=== PATIENT | female | born 1965 | race Caucasian/White ===

== ENCOUNTER 2017-04-15 01:53 | Observation (INO) | payer BC ==
[2017-04-15] MEDS ORDERED: MORPHINE SULFATE 10 MG/ML INJ IV ONE ×2 (03:21→06:28)
[2017-04-15] MEDS ORDERED: ONDANSETRON HCL INJ/PF 4 MG/2 ML SDV IV ONE (03:22)
[2017-04-15] MEDS ORDERED: NORMAL SALINE 1000 ML 1,000 ML IV ONE (03:22)
[2017-04-15] MEDS ORDERED: KETOROLAC TROMETHAMINE INJ/PF 30 MG/1 ML SDV IV ONE (03:22)
--- NOTE | 2017-04-15 03:24 | ER Document Report ---
ED GI/ - General Chief Complaint: Abdominal Pain Stated Complaint: ABDOMINAL PAIN Time Seen by Provider: 04/15/17 03:14 Notes: Patient is a 52-year-old female that comes emergency department for chief complaint of pain in her upper abdomen and vomiting. She states that she started having pain at about 2200, shortly after she had eaten a steak dinner. She states that she vomited about 10 times. She denies any suspicious foods, recent travel, fever or chills. She denies any alcohol, only past medical history reported is hypertension and C-sections. TRAVEL OUTSIDE OF THE [place] IN LAST 30 DAYS: No - Related Data Allergies/Adverse Reactions: No Known Allergies Allergy (Unverified 04/15/17 03:38) Past Medical History - General Information source: Patient - Social History Smoking Status: Never Smoker Frequency of alcohol use: Occasional Drug Abuse: None Lives with: Family Family History: Reviewed & Not Pertinent - Past Medical History Cardiac Medical History: Reports: Hx Hypertension Past Surgical History: Reports: Hx Section - Immunizations Immunizations up to date: Yes Hx Diphtheria, Pertussis, Tetanus Vaccination: Yes Review of Systems - Review of Systems Constitutional: No symptoms reported EENT: No symptoms reported Cardiovascular: No symptoms reported Respiratory: No symptoms reported Gastrointestinal: See HPI Genitourinary: No symptoms reported Female Genitourinary: No symptoms reported Musculoskeletal: No symptoms reported Skin: No symptoms reported Hematologic/Lymphatic: No symptoms reported Neurological/Psychological: No symptoms reported Physical Exam - Vital signs Vitals: Temp Pulse Resp BP Pulse Ox 98.0 F 75 18 105/80 97 04/15/17 02:23 04/15/17 02:23 04/15/17 02:23 04/15/17 02:23 04/15/17 02:23 Interpretation: Normal - General General appearance: Alert In distress: None - HEENT Head: Normocephalic, Atraumatic Eyes: Normal Conjunctiva: Normal Extraocular movements intact: Yes Eyelashes: Normal Pupils: PERRL Nasal: Normal Mouth/Lips: Normal Mucous membranes: Normal Pharynx: Normal Neck: Normal - Respiratory Respiratory status: No respiratory distress Chest status: Nontender Breath sounds: Normal. No: Decreased air movement, Wheezing Chest palpation: Normal - Cardiovascular Rhythm: Regular. No: Tachycardia Heart sounds: Normal auscultation, S1 appreciated, S2 appreciated Murmur: No - Abdominal Inspection: Normal Distension: No distension Bowel sounds: Normal Tenderness: Tender - Tender in the epigastric and right upper quadrant areas, lower abdomen is unremarkable, no rigidity or rebound tenderness, Khan's sign - Back Back: Normal, Nontender - Extremities General upper extremity: Normal inspection, Nontender, Normal color, Normal ROM , Normal temperature General lower extremity: Normal inspection, Nontender, Normal color, Normal ROM , Normal temperature, Normal weight bearing. No: Nahed's sign - Neurological Neuro grossly intact: Yes Cognition: Normal Orientation: AAOx4 [place] Coma Scale Eye Opening: Spontaneous Junior Coma Scale Verbal: Oriented [place] Coma Scale Motor: Obeys Commands [place] Coma Scale Total: 15 Speech: Normal Motor strength normal: LUE, RUE, LLE, RLE Sensory: Normal - Psychological Associated symptoms: Normal affect, Normal mood - Skin Skin Temperature: Warm Skin Moisture: Dry Skin Color: Normal Course - Re-evaluation Re-evalutation: Patient with epigastric and right upper quadrant tenderness along with pain and vomiting suggesting gallbladder pathology. Remaining examination is unremarkable. Patient much more comfortable after medications. CBC shows mild leukocytosis with elevation of neutrophils but no bandemia. Chemistry unremarkable, lipase normal. Ultrasound showing cholelithiasis along with unmoving stone in the gallbladder neck. Borderline gallbladder wall thickness. No pericholecystic fluid. No obstructive pathology in the ducts. On reexamination patient is beginning to have pain again. Because of difficulty managing pain, location of stone, I suspect patient will not perform well outpatient. Discussed surgery with her, she is agreeable with this. Patient will be kept n.p.o., medicated. Discussed with Dr. Vogt, surgery on-call, he will evaluate the patient. - Vital Signs Vital signs: Temp Pulse Resp BP Pulse Ox 98.0 F 75 18 105/80 97 04/15/17 02:23 04/15/17 02:23 04/15/17 02:23 04/15/17 02:23 04/15/17 02:23 - Laboratory Result Diagrams: 04/15/17 03:35 04/15/17 03:35 Laboratory results interpreted by me: 04/15/17 04/15/17 03:35 03:35 WBC 13.6 H Hgb 11.0 L Hct 33.4 L MCV 70 L MCH 23.3 L RDW 16.4 H Seg Neutrophils % 82.9 H Absolute Neutrophils 11.3 H Sodium 136.3 L Potassium 3.2 L Glucose 129 H Discharge - Discharge Clinical Impression: Epigastric pain Cholelithiasis Qualifiers: Cholelithiasis location: gallbladder and bile duct Cholecystitis presence: without cholecystitis Biliary obstruction: without biliary obstruction Qualified Code(s): K80.70 - Calculus of gallbladder and bile duct without cholecystitis without obstruction Vomiting Qualifiers: Vomiting type: unspecified Vomiting Intractability: non-intractable Nausea presence: with nausea Qualified Code(s): R11.2 - Nausea with vomiting, unspecified Condition: Stable Disposition: ADMITTED OBSERVATION Admitting Provider: Surgicalist Unit Admitted: Surgical Floor Referrals: SJ CASTRO MD [Primary Care Provider] - Follow up as needed
[2017-04-15 03:44] LABS: ABSOLUTE BASOPHILS # (AUTO) 0.1 10^3/uL (0.0-0.2); ABSOLUTE LYMPHOCYTES (AUTO) 1.8 10^3/uL (0.5-4.7); ABSOLUTE MONOCYTES (AUTO) 0.5 10^3/uL (0.1-1.4); ABSOLUTE NEUT (AUTO) 11.3 10^3/uL (1.7-8.2); BASOPHILS % (AUTO) 0.5 % (0-2); EOSINOPHILS % (AUTO) 0.3 % (0-6); HEMATOCRIT 33.4 % (36.0-47.0); MEAN CORPUSCULAR HEMOGLOBIN 23.3 pg (27.0-33.4); MEAN CORPUSCULAR HGB CONC 33.1 g/dL (32.0-36.0); MEAN CORPUSCULAR VOLUME 70 fl (80-97); MONOCYTES % (AUTO) 3.3 % (3-13); PLATELET COUNT 293 10^3/uL (150-450); RED BLOOD COUNT 4.74 10^6/uL (3.72-5.28); RED CELL DISTRIBUTION WIDTH 16.4 % (11.5-14.0); SEGMENTED NEUTROPHILS % (AUTO) 82.9 % (42-78); TOTAL CELLS COUNTED % (AUTO) 100 %; WHITE BLOOD COUNT 13.6 10^3/uL (4.0-10.5)
[2017-04-15 04:06] LABS: ALANINE AMINOTRANSFERASE 32 U/L (9-52); ALBUMIN 4.2 g/dL (3.5-5.0); ALKALINE PHOSPHATASE 100 U/L (38-126); ANION GAP 11 (5-19); ASPARTATE AMINO TRANSFERASE 23 U/L (14-36); BILIRUBIN,DIRECT 0.2 mg/dL (0.0-0.4); BILIRUBIN,TOTAL 0.6 mg/dL (0.2-1.3); BLOOD UREA NITROGEN 11 mg/dL (7-20); CALCIUM 9.4 mg/dL (8.4-10.2); CARBON DIOXIDE 27 mmol/L (22-30); CHLORIDE 98 mmol/L (98-107); GLUCOSE 129 mg/dL (75-110); LIPASE 42.7 U/L (23-300); POTASSIUM 3.2 mmol/L (3.6-5.0); SODIUM 136.3 mmol/L (137-145)
--- NOTE | 2017-04-15 04:34 | RADIOLOGY REPORT (SQ) ---
EXAM DESCRIPTION: U/S ABDOMEN LIMITED W/O DOP CLINICAL HISTORY: 52 years, Female, epigastric pain, vomiting COMPARISON: None. LIMITATIONS: None. FINDINGS: Cholelithiasis includes multiple small stones including a nonmobile stone at the gallbladder neck. Gallbladder wall thickness is 6 mm. Sonographic Khan's test is negative although patient is premedicated. No intra or extrahepatic ductal dilation. Common bile duct diameter is 3 mm. Mild hepatic steatosis. 13 cm right kidney and visualized aorta are unremarkable. No ascites. IMPRESSION: Cholelithiasis including nonmobile stone at the gallbladder neck. Nonspecific gallbladder wall thickening. Sonographic Khan's test is negative although patient is premedicated. Differential diagnosis includes biliary colic; cannot exclude acute cholecystitis. 2011 [employer]- All Rights Reserved
[2017-04-15] MEDS ORDERED: NORMAL SALINE 1000 ML 1,000 ML IV PRN ×2 (04:42→13:44)
[2017-04-15] MEDS ORDERED: AMPICILLIN SOD/SULBACTAM 3 GM VIAL IV ONE (04:43)
--- NOTE | 2017-04-15 07:18 | PDOC H&P ---
History of Present Illness Admission Date/PCP: 04/15/17 06:40 SJ CASTRO MD Patient complains of: abdominal pains History of Present Illness: LISSETH LAGUNA is a 52 year old female c/o epigastric/RUQ after a fatty meal at 10 pm asso with nausea.US in ED showed gallstones. Pains partially relieved with narcotics. Past Medical History Cardiac Medical History: Reports: Hypertension Past Surgical History Past Surgical History: Reports: Section Social History Lives with: Family Smoking Status: Never Smoker Frequency of Alcohol Use: Occasional Hx Recreational Drug Use: No Family History Family History: Reviewed & Not Pertinent Parental Family History Reviewed: Yes - mother had cholecystectomy Children Family History Reviewed: No Sibling(s) Family History Reviewed.: Yes - A sister had Cholecystectomy Medication/Allergy Home Medications: Biotin 5,000 mcg PO DAILY 04/15/17 Cetirizine HCl [Zyrtec 10 mg Tablet] 10 mg PO DAILY 04/15/17 Fluticasone Propionate [Flonase Nasal [place] 50 Mcg/[place] 16 gm] 1 spray NASL DAILY 04/15/17 Losartan/Hydrochlorothiazide [Hyzaar 100-25 Tablet] 1 tab PO DAILY 04/15/17 Magnesium Oxide [Mag-Ox 400 mg Tablet] 400 mg PO DAILY 04/15/17 Omeprazole 20 mg PO ACBRKFST 04/15/17 Potassium Chloride [K-Tab ER] 10 meq PO DAILY 04/15/17 Pravastatin Sodium [Pravachol] 20 mg PO QHS 04/15/17 Allergies/Adverse Reactions: No Known Allergies Allergy (Unverified 04/15/17 03:38) Review of Systems Constitutional: PRESENT: other - no fever/chills Eyes: PRESENT: other - no visual/hearing changes Nose, Mouth, and Throat: PRESENT: other - no sore throat Cardiovascular: PRESENT: other - no chest pains Respiratory: PRESENT: other - no cough Gastrointestinal: PRESENT: abdominal pain, nausea Genitourinary: PRESENT: other - no dysuria Musculoskeletal: PRESENT: back pain - epigastric/RUQ pains radiating to the back Integumentary: PRESENT: other - no rash Neurological: PRESENT: other - no seizures Endocrine: PRESENT: other - no polyuria Physical Exam Vital Signs: Temp Pulse Resp BP Pulse Ox 98.0 F 75 18 105/80 97 04/15/17 02:23 01/17/18 02:23 04/15/17 02:23 04/15/17 02:23 04/15/17 02:23 General appearance: PRESENT: mild distress Head exam: PRESENT: atraumatic Eye exam: PRESENT: conjunctiva pink Mouth exam: PRESENT: moist, tongue midline Neck exam: PRESENT: full ROM Respiratory exam: PRESENT: clear to auscultation shannan Cardiovascular exam: PRESENT: RRR Pulses: PRESENT: normal radial pulses Vascular exam: PRESENT: normal capillary refill GI/Abdominal exam: PRESENT: soft, tenderness - RUQ and epigastrium Rectal exam: PRESENT: deferred Extremities exam: PRESENT: full ROM Musculoskeletal exam: PRESENT: ambulatory Neurological exam: PRESENT: alert, oriented to person, oriented to place, oriented to time, oriented to situation Psychiatric exam: PRESENT: appropriate affect Skin exam: PRESENT: normal color, warm Results Impressions: Abdomen Ultrasound 04/15/17 03:22 IMPRESSION: Cholelithiasis including nonmobile stone at the gallbladder neck. Nonspecific gallbladder wall thickening. Sonographic Khan's test is negative although patient is premedicated. Differential diagnosis includes biliary colic; cannot exclude acute cholecystitis. 2011 [employer]- All Rights Reserved Assessment & Plan - Diagnosis (1) Acute cholecystitis Is this a current diagnosis for this admission?: Yes - Time Time Spent: 30 to 50 Minutes - Inpatient Certification Based on my medical assessment, after consideration of the patient's comorbidities, presenting symptoms, or acuity I expect that the services needed warrant INPATIENT care.: Yes I certify that my determination is in accordance with my understanding of Medicare's requirements for reasonable and necessary INPATIENT services [42 CFR 412.3e].: Yes Medical Necessity: Need For IV Fluids, Need for Pain Control, Need for IV Antibiotics, Need for Surgery - Plan Summary Plan Summary: NPO Hydrate Start IV Unasyn For laparoscopic cholecystectomy
[2017-04-15] MEDS ORDERED: DEXTROSE 50%-WATER 25 GM/50 ML DISP.SYRIN IV PRN ×2 (07:20)
[2017-04-15] MEDS ORDERED: GLUCAGON,HUMAN RECOMB 1 MG INJ SUBCUT PRN (07:20)
[2017-04-15] MEDS ORDERED: DEXTROSE 40% GEL 15 GM TUBE PO PRN ×2 (07:20)
[2017-04-15] MEDS ORDERED: POTASSI CL 20 MEQ/NS 1L 1,000 ML IV PRN (07:20)
[2017-04-15] MEDS ORDERED: HYDROMORPHONE HCL INJ/PF 2 MG/ML AMPULE IV PRN ×2 (07:26→13:43)
[2017-04-15] MEDS ORDERED: ONDANSETRON HCL INJ/PF 4 MG/2 ML SDV IV PRN ×2 (07:27→13:43)
[2017-04-15 08:30] LABS: APPEARANCE,URINE CLOUDY; BILIRUBIN,URINE NEGATIVE (NEGATIVE); COLOR,URINE YELLOW; GLUCOSE, URINE NEGATIVE (NEGATIVE); KETONES,URINE NEGATIVE (NEGATIVE); LEUKOCYTE ESTERASE,URINE TRACE (NEGATIVE); NITRITE,URINE NEGATIVE (NEGATIVE); PROTEIN,URINE NEGATIVE (NEGATIVE); URINE SPECIFIC GRAVITY 1.021; UROBILINOGEN,URINE NEGATIVE mg/dL (<2.0)
[2017-04-15] MEDS ORDERED: BUPIVACAINE HCL 0.25% /EPINEPHRINE INJ/PF 30 ML SDV ONE (10:59)
[2017-04-15] MEDS ORDERED: AMPICILLIN SOD/SULBACTAM 1.5 GM VIAL ONE (11:16)
[2017-04-15] MEDS ORDERED: FENTANYL CITRATE INJ/PF 100 MCG/2 ML AMPUL ONE (11:34)
[2017-04-15] MEDS ORDERED: MIDAZOLAM 2 MG/2 ML INJ ONE (11:34)
[2017-04-15] MEDS ORDERED: PROPOFOL INJ 200 MG/20 ML VIAL IV ONE (11:34)
[2017-04-15] MEDS ORDERED: HYDROMORPHONE HCL INJ/PF 2 MG/ML AMPULE ONE (11:35)
[2017-04-15] MEDS ORDERED: ACETAMINOPHEN 100 ML IV ONE (11:35)
[2017-04-15] MEDS ORDERED: AMPICILLIN SOD/SULBACTAM 3 GM VIAL ONE (12:20)
[2017-04-15] MEDS ORDERED: DIPHENHYDRAMINE HCL 50 MG/ML VIAL IV PRN (12:55)
[2017-04-15] MEDS ORDERED: MORPHINE SULFATE 10 MG/ML INJ IV PRN ×3 (12:55→15:09)
[2017-04-15] MEDS ORDERED: MEPERIDINE HCL/PF INJ 25 MG/1 ML DISP.SYRIN IV PRN (12:55)
[2017-04-15] MEDS ORDERED: PROMETHAZINE HCL INJ 25 MG/1 ML VIAL IV PRN ×2 (12:55)
[2017-04-15] MEDS ORDERED: FENTANYL CITRATE INJ/PF 100 MCG/2 ML AMPUL IV PRN ×3 (12:55)
[2017-04-15] MEDS ORDERED: OXYCODONE-ACETAMINOPHEN 5-325 MG TABLET PO PRN ×2 (12:55)
[2017-04-15] MEDS ORDERED: KETOROLAC TROMETHAMINE INJ/PF 30 MG/1 ML SDV IV SCH ×2 (14:00→15:15)
--- NOTE | 2017-04-15 14:29 | OPERATIVE REPORT E ---
Operative Report NAME: LISSETH LAGUNA : 1965 AGE: 52Y DATE OF SURGERY: 04/15/2017 ROOM: 212 PREOPERATIVE DIAGNOSIS: Acute cholecystitis and cholelithiasis. POSTOPERATIVE DIAGNOSIS: Acute cholecystitis and cholelithiasis. OPERATION: Laparoscopic cholecystectomy. SURGEON: KRYSTEN HERNANDEZ M.D. ANESTHESIA: General. INDICATIONS: A 52-year-old female who started complaining of epigastric and right upper quadrant pain radiating to the back after dinner last night. She came to the emergency room and ultrasound showed gallbladder thickening wall and gallstones. She remains to have pains and tenderness in the right upper quadrant and epigastric area despite parenteral pain medications. Her white count is slightly elevated. DESCRIPTION OF PROCEDURE: After adequate general anesthesia, patient was placed in supine position and the abdomen prepped and draped in the usual sterile fashion. An infraumbilical elliptical incision was made and the fascia identified and grasped with Nilda clamps. The fascia was then opened and I was able to put my finger for finger dissection of the peritoneal area. There were a little adhesions from a previous section. Next, a Dipesh trocar was inserted and CO2 insufflated to a pressure of 15 mmHg. Three other trocars were placed, an 11 mm in the subxiphoid and two 5 mm in the right upper quadrant. The gallbladder was then identified and noted to have thickened wall. The adhesions noted were bluntly lysed. The top end of the gallbladder was grasped and pulled up over the liver. Further blunt dissection and also use of Harmonic letty were used to release these adhesions. The cystic duct was then dissected and noted to be thickened. I was able to place 3 clips proximally and 1 clip towards the gallbladder area and divided between the distal clips. The cystic duct noted to be quite small but thickened wall. The cystic artery was identified and then clipped with hemoclips and divided with use of harmonic letty. The gallbladder was noted to be quite edematous and dissection was then performed taking the gallbladder off the liver bed primarily with the use of Harmonic letty. Gallbladder was then completely removed from the liver bed. Just prior to this, the liver bed was sprayed with Marcaine. Adequate hemostasis noted. The gallbladder was then placed in an Endobag and pulled out through the umbilical port. Next, the liver bed was again inspected. No evidence of bleeding noted. Gentle irrigation was done and this was then suctioned out. On visual inspection of the abdominal cavity, there was a little adhesion towards the area of the pelvis from the previous section and this was left in place. Next, all the trocars were removed and CO2 allowed to come out through the trocar sites. The fascial defect at the infraumbilical was then closed with [id number] suture using 0 Vicryl. The fascia and the skin incisions were then injected with Marcaine. Next, the skin incisions were then closed with running subcuticular 4-0 Vicryl undyed. Sterile dressing were then placed over the operative sites. Needle, instrument and sponge counts were all correct. Estimated blood loss about 10 mL. DICTATING PHYSICIAN: KRYSTEN HERNANDEZ M.D. [id number] PHY#: [id number] ID: [id number] JOB#: [id number] ACCT: [id number] cc:KRYSTEN HERNANDEZ M.D. >
[2017-04-15] MEDS ORDERED: LIDOCAINE 2% INJ-PF (20 MG/ML) 2 ML AMPUL ONE (14:44)
[2017-04-15] MEDS ORDERED: DEXAMETHASONE SOD PHOSPHATE INJ 4 MG/1 ML VIAL ONE (14:44)
[2017-04-15] MEDS ORDERED: GLYCOPYRROLATE INJ 0.4 MG/2 ML VIAL ONE (14:44)
[2017-04-15] MEDS ORDERED: ROCURONIUM BROMIDE INJ 50 MG/5 ML VIAL IV ONE (14:44)
[2017-04-15] MEDS ORDERED: ONDANSETRON HCL INJ/PF 4 MG/2 ML SDV ONE (14:44)
[2017-04-15] MEDS ORDERED: SUCCINYLCHOLINE CHLORIDE INJ 200 MG/10 ML VIAL ONE (14:44)
[2017-04-15] MEDS ORDERED: NEOSTIGMINE METHYLSULFATE 10 MG/10 ML VIAL ONE (14:44)
[2017-04-15] MEDS ORDERED: AMPICILLIN SODIUM/SULBACTAM NA 3 GM in NORMAL SALINE 100 ML IV SCH ×4 (18:00)
[2017-04-15 19:32] VITALS: BP 128/72
== END 2017-04-15 19:50 | disposition home or self-care (01) ==
LOC: ER 01:53 → EH 06:40 → 2N 09:00
PROVIDERS: ATTEND Surgery
PROC: 0FT44ZZ Resection of Gallbladder, Percutaneous Endoscopic Approach (ICD-10-PCS; principal; 2017-04-15 12:15)
DX: K80.12 Calculus of gallbladder with acute and chronic cholecystitis without obstruction (principal); I10 Essential (primary) hypertension; Z83.79 Family history of other diseases of the digestive system; Z79.899 Other long term (current) drug therapy; Z98.890 Other specified postprocedural states
CPT/HCPCS: 96376; 99285; 96361; 96374; 96375; 36415; 83690; 85025; 81025; 80053; 81001; 88304 ×2; 76705; 47562; J2250; J3490 ×3; J1100; J3010; J0295 ×2; J1885; J2270; J1170; J0330; J2405; J7030; J2704; J0131; 790